=== PATIENT | female | born 1955 | race Caucasian/White ===

== ENCOUNTER 2018-07-20 09:12 | Observation (INO) | payer OTHER ==
[~2018-07-20] VITALS: Ht 152.4 cm; Wt 95.0 kg
[2018-07-20] MEDS ORDERED: METO25TA35 PO (09:36)
[2018-07-20] MEDS ORDERED: CLOP75TA PO (09:36)
[2018-07-20] MEDS ORDERED: METF500T27 PO (09:36)
[2018-07-20] MEDS ORDERED: METF500T17 PO (09:36)
[2018-07-20] MEDS ORDERED: PANT20TA3 PO (09:36)
[2018-07-20] MEDS ORDERED: LOSA25TA25 PO (09:36)
[2018-07-20] MEDS ORDERED: ASPI-496 PO (09:36)
[2018-07-20] MEDS ORDERED: VENL25TA PO (09:36)
[2018-07-20] MEDS ORDERED: nitroglycerin PO (09:36)
[2018-07-20] MEDS ORDERED: RANI150T4 PO (09:36)
[2018-07-20] MEDS ORDERED: [UNRECOGNIZED DRUG - OTHER] PO (09:36)
[2018-07-20] MEDS ORDERED: FURO-93 PO (09:36)
--- NOTE | 2018-07-20 09:36 | NUR ---
Pt presents to ED from home by EMS with c/o left chest pain and left arm pain. Pt states, "I woke up to my arm and felt a horrible chest pain and pain in my left arm, I have not had the pain in my arm before. My nitro tablets were wet some how in the bottle. I knew I needed to call an ambulance. My head still really hurts, it is about a 6 or 7 now, my chest pain after all the stuff I got in the ambulance is about a 5. This morning it was an 11." EDMD at bedside. All safety measures in place. Pt connected to all monitors. Pt has had an ID with 8 stent placement. Pt states, "I have had diarrhea the past three days." Pt states, "This does not feel like anything I have had before."
[2018-07-20] MEDS ORDERED: ACETAMINOPHEN 500 MG TABLET ONE (09:43)
[2018-07-20] MEDS ORDERED: NITROGLYCERIN OINT 2%, 1GM TP ONE ×2 (09:43→10:00)
--- NOTE | 2018-07-20 09:49 | NUR ---
Provided medication per [facility]. Pt appreciative. Pt states, "I don't think the tylenol is going to help my headache, they ususally give me morphine, but I will try the tylenol."
[2018-07-20] MEDS ORDERED: ACETAMINOPHEN 500 MG TABLET PO ONE (10:00)
[2018-07-20] MEDS ORDERED: SODIUM CHLORIDE FLUSH 10ML SYR IVF ONE (10:00)
[2018-07-20 10:13] LABS: BASOPHILS # (AUTO) 0.06 x10^3/uL (0-0.1); BASOPHILS % (AUTO) 1 % (0-1); EOSINOPHILS # (AUTO) 0.14 x10^3/uL (0-0.4); EOSINOPHILS % (AUTO) 2 % (1-7); LYMPHOCYTES # (AUTO) 2.05 x10^3/uL (1-3.4); LYMPHOCYTES % (AUTO) 30 % (22-44); MD NO; MEAN CORPUSCULAR HGB CONC 33.4 g/dL (32.4-35.8); MEAN PLATELET VOLUME 8.8 fL (7.4-10.4); MONOCYTES # (AUTO) 0.45 x10^3/uL (0.2-0.8); MONOCYTES % (AUTO) 7 % (2-9); NEUTROPHILS # (AUTO) 4.05 x10^3/uL (1.8-6.8); NEUTROPHILS % (AUTO) 60 % (42-75); PLATELET COUNT 305 x10^3/uL (130-400); RED BLOOD COUNT 4.48 x10^6/uL (3.82-5.3); RED CELL DISTRIBUTION WIDTH 15.6 % (9.6-15.2)
--- NOTE | 2018-07-20 10:20 | NUR ---
Pt states 8/10 chest pain post medication admin. Repeat EKG done and provided to EDMD. Per EDMD, "no ischemic changes, she can have some sublingual nitro."
[2018-07-20 10:25] LABS: ALBUMIN 3.5 g/dL (3.4-5.0); ANION GAP 7 mmol/L (5-15); CALCIUM 8.7 mg/dL (8.5-10.1); CHLORIDE 108 mmol/L (98-107); CREATININE 0.79 mg/dL (0.55-1.02)
[2018-07-20] MEDS ORDERED: NITROGLYCERIN SINGLE TAB 0.4 MG SL ONE ×2 (10:25→14:35)
[2018-07-20 10:29] LABS: TROPONIN I < 0.015 ng/mL (0.000-0.045)
[2018-07-20] MEDS: NITROGLYCERIN 0.4 MG BOTTLE (25 TABS) SL PRN ×3 (10:29→14:43)
--- NOTE | 2018-07-20 10:29 | NUR ---
Provided medications per [facility].
--- NOTE | 2018-07-20 10:31 | NUR ---
Pt states post medication administration, "My left chest pain is about a 4 now."
--- NOTE | 2018-07-20 11:35 | NUR ---
Pt resting on gurney connected to all monitors. ALONZO. Pt remains on 2L oxygen via nasal cannula. Pt states, "The tylenol didn't help my headache. My chest pain is still a 4." All safety measures in place. Call light within reach. Pt provided warm blankets and Brant Hugger warmer for comfort measures. Pt requesting socks. Will provide socks for patient. No other needs requested at this time.
[2018-07-20] MEDS ORDERED: ACETAMINOPHEN 325 MG TABLET PO PRN (12:00)
[2018-07-20] MEDS ORDERED: BISACODYL 10 MG SUPP PR PRN (12:00)
[2018-07-20] MEDS ORDERED: NITROGLYCERIN 0.4 MG BOTTLE (25 TABS) SL PRN (12:00)
[2018-07-20] MEDS ORDERED: DOCUSATE 100 MG CAPSULE PO PRN (12:00)
[2018-07-20] MEDS ORDERED: LABETALOL 5MG/ML, 20ML IVPush PRN (12:00)
[2018-07-20] MEDS ORDERED: ONDANSETRON 2MG/ML, 2ML IVPush PRN (12:00)
[2018-07-20] MEDS ORDERED: POLYETHYLENE GLYCOL 17 GM PACKET PO PRN (12:00)
[2018-07-20] MEDS ORDERED: MORPHINE SULFATE 4 MG/ML, 1ML ONE ×2 (13:09→14:50)
[2018-07-20] MEDS ORDERED: ENOXAPARIN 40 MG/0.4 ML ONE (13:09)
[2018-07-20] MEDS: morphine SULFATE 10 MG/ML, 1ML IVPush PRN ×3 (13:13→20:41)
[2018-07-20] MEDS: ENOXAPARIN 40 MG/0.4 ML SQ SCH (13:13)
--- NOTE | 2018-07-20 13:18 | NUR ---
Provided pain medication prn per EMAR for 7-10/10 pain. Pt recieved Tylenol prior for headache pain with no relief. Pt states headache is 7/10.
--- NOTE | 2018-07-20 13:21 | NUR ---
Ordered meal tray for pt per request and following MD orders.
--- NOTE | 2018-07-20 14:37 | NUR ---
Pt stating 10/10 left chest pain. EKG done and shown to EDMD. Provided pt medication per EMAR.
--- NOTE | 2018-07-20 14:45 | NUR ---
Pt reports left chest pain has gone down after first nitro per EMAR from a 10/10 to a 5/10.
--- NOTE | 2018-07-20 14:45 | NUR ---
Pt reports left chest pain at a 2/10 at this time post second dose of nitro per EMAR.
--- NOTE | 2018-07-20 14:46 | NUR ---
Pt reporting 7/10 headache.
[2018-07-20] MEDS ORDERED: ACETAMINOPHEN 325 MG TABLET ONE (14:58)
--- NOTE | 2018-07-20 15:05 | NUR ---
Provided report to ANDREA Redmond. All questions answered. Pt ready to transfer to floor from ED.
[2018-07-20] MEDS ORDERED: VENL150C6 PO (15:10)
[2018-07-20] MEDS ORDERED: PREG25CA PO (15:10)
--- NOTE | 2018-07-20 15:10 | NUR ---
Provided pt medication per EMAR for 12/15 headache. Pt appreciative.
[2018-07-20 15:30] LABS: TROPONIN I 0.045 ng/mL (0.000-0.045)
[2018-07-20 15:57] VITALS: BP 139/86
--- NOTE | 2018-07-20 16:08 | NUR ---
Pt transfered to floor from ED and left with all personal belongings.
[2018-07-20] MEDS: FUROSEMIDE 20 MG TABLET PO SCH (17:36)
[2018-07-20 19:39] VITALS: BP 121/79
[2018-07-20] MEDS: SODIUM CHLORIDE FLUSH 10ML SYR IVF SCH (20:40)
[2018-07-20] MEDS: METOPROLOL TARTRATE 25 MG TABLET PO SCH (20:41)
[2018-07-20] MEDS: metFORMIN 500 MG TABLET PO SCH (20:41)
[2018-07-20] MEDS ORDERED: ATOR-2 PO (20:48)
[2018-07-20] MEDS ORDERED: TRAZ-96 PO (20:48)
[2018-07-20 21:38] LABS: TROPONIN I 0.016 ng/mL (0.000-0.045)
[2018-07-20] MEDS ORDERED: TRAZODONE 100MG TABLET PO ONE (23:30)
[2018-07-21 03:40] VITALS: BP 126/85
[2018-07-21] MEDS: ASPIRIN 325 MG TABLET EC PO SCH (05:49)
[2018-07-21 06:34] LABS: CHOL/HDL RATIO 6.6; LDL/HDL RATIO 3.8 (0.5-3.0)
[2018-07-21 06:39] LABS: ALBUMIN 3.2 g/dL (3.4-5.0); ANION GAP 8 mmol/L (5-15); CALCIUM 8.2 mg/dL (8.5-10.1); CHLORIDE 109 mmol/L (98-107); CREATININE 0.75 mg/dL (0.55-1.02)
[2018-07-21 06:42] VITALS: BP 108/70
[2018-07-21] MEDS: SODIUM CHLORIDE FLUSH 10ML SYR IVF SCH ×2 (09:00→22:25)
[2018-07-21 09:45] LABS: TROPONIN I < 0.015 ng/mL (0.000-0.045)
[2018-07-21] MEDS ORDERED: REGADENOSON 0.4 MG/5 ML SYRINGE ONE ×2 (12:09→12:40)
[2018-07-21 13:28] VITALS: BP 121/82
[2018-07-21] MEDS: LOSARTAN 25MG TABLET PO SCH (13:50)
[2018-07-21] MEDS: VENLAFAXINE 25MG TABLET PO SCH (13:50)
[2018-07-21] MEDS: CLOPIDOGREL 75 MG TABLET PO SCH (13:51)
[2018-07-21] MEDS: METOPROLOL TARTRATE 25 MG TABLET PO SCH ×2 (13:51→22:24)
[2018-07-21] MEDS: metFORMIN 500 MG TABLET PO SCH ×2 (13:58→22:24)
[2018-07-21] MEDS: FUROSEMIDE 20 MG TABLET PO SCH ×2 (13:58→17:42)
[2018-07-21] MEDS: ENOXAPARIN 40 MG/0.4 ML SQ SCH (14:00)
[2018-07-21 15:32] LABS: CLOSTRIDIUM DIFFICILE ANTIGEN NEGATIVE; CLOSTRIDIUM DIFFICILE TOXIN NEGATIVE (Negative)
[2018-07-21 18:46] VITALS: BP 126/87
[2018-07-21] MEDS ORDERED: TRAZODONE 100MG TABLET PO SCH (21:00)
[2018-07-21] MEDS ORDERED: TRAZODONE 150MG TABLET PO SCH (21:00)
[2018-07-21] MEDS ORDERED: OMNIPAQUE 350 MG/ML, 100ML BOTTLE ONE (23:14)
[2018-07-22 02:01] VITALS: BP 113/76
[2018-07-22 03:02] VITALS: BP 120/77
[2018-07-22 03:03] VITALS: BP 137/70
[2018-07-22 03:04] VITALS: BP 138/73
[2018-07-22] MEDS: ASPIRIN 325 MG TABLET EC PO SCH (05:21)
[2018-07-22 05:35] LABS: BASOPHILS # (AUTO) 0.06 x10^3/uL (0-0.1); BASOPHILS % (AUTO) 1 % (0-1); EOSINOPHILS # (AUTO) 0.16 x10^3/uL (0-0.4); EOSINOPHILS % (AUTO) 2 % (1-7); LYMPHOCYTES # (AUTO) 2.71 x10^3/uL (1-3.4); LYMPHOCYTES % (AUTO) 35 % (22-44); MD NO; MEAN CORPUSCULAR HEMOGLOBIN 30.7 pg (27.0-34.8); MEAN CORPUSCULAR HGB CONC 33.1 g/dL (32.4-35.8); MEAN CORPUSCULAR VOLUME 92.7 fL (80-100); MEAN PLATELET VOLUME 8.8 fL (7.4-10.4); MONOCYTES # (AUTO) 0.65 x10^3/uL (0.2-0.8); MONOCYTES % (AUTO) 8 % (2-9); NEUTROPHILS # (AUTO) 4.27 x10^3/uL (1.8-6.8); NEUTROPHILS % (AUTO) 55 % (42-75); PLATELET COUNT 317 x10^3/uL (130-400); RED BLOOD COUNT 4.41 x10^6/uL (3.82-5.3); RED CELL DISTRIBUTION WIDTH 15.8 % (9.6-15.2)
[2018-07-22 06:01] LABS: ALANINE AMINOTRANSFERASE 43 U/L (12-78); ALBUMIN 3.3 g/dL (3.4-5.0); ANION GAP 9 mmol/L (5-15); CHLORIDE 104 mmol/L (98-107); CREATININE 0.97 mg/dL (0.55-1.02)
[2018-07-22 06:03] LABS: ALKALINE PHOSPHATASE 109 U/L (45-117); BILIRUBIN,TOTAL 0.3 mg/dL (0.2-1.0); TOTAL PROTEIN 7.5 g/dL (6.4-8.2)
[2018-07-22 07:58] VITALS: BP 111/73
[2018-07-22] MEDS: CLOPIDOGREL 75 MG TABLET PO SCH (08:31)
[2018-07-22] MEDS: VENLAFAXINE 25MG TABLET PO SCH (08:31)
[2018-07-22] MEDS: SODIUM CHLORIDE FLUSH 10ML SYR IVF SCH (08:31)
[2018-07-22] MEDS: FUROSEMIDE 20 MG TABLET PO SCH (08:31)
[2018-07-22] MEDS: LOSARTAN 25MG TABLET PO SCH (08:31)
[2018-07-22] MEDS: METOPROLOL TARTRATE 25 MG TABLET PO SCH (08:31)
[2018-07-22] MEDS: metFORMIN 500 MG TABLET PO SCH (08:32)
[2018-07-22] MEDS: ENOXAPARIN 40 MG/0.4 ML SQ SCH (12:35)
[2018-07-22] MEDS ORDERED: ALBU18HF INH (14:46)
[2018-07-22 15:05] VITALS: BP 138/96
[2018-07-22] MEDS ORDERED: NITR0.4T SL (15:12)
== END 2018-07-22 15:24 | disposition home or self-care (01) ==
LOC: ED 09:45 → INTOOBSV 11:18 → EDIP 11:18 → 5SO 15:29
PROVIDERS: ADMIT Hospitalist; ATTEND Hospitalist
DX: R07.89 Other chest pain (principal); E11.65 Type 2 diabetes mellitus with hyperglycemia; E78.5 Hyperlipidemia, unspecified; I11.9 Hypertensive heart disease without heart failure; I25.110 Atherosclerotic heart disease of native coronary artery with unstable angina pectoris; J96.91 Respiratory failure, unspecified with hypoxia; K21.9 Gastro-esophageal reflux disease without esophagitis; J44.9 Chronic obstructive pulmonary disease, unspecified; Z79.84 Long term (current) use of oral hypoglycemic drugs; Z82.49 Family history of ischemic heart disease and other diseases of the circulatory system; Z87.891 Personal history of nicotine dependence; Z95.5 Presence of coronary angioplasty implant and graft
CPT/HCPCS: 36415; 71045; 71275; 78452; 80048; 80053; 80061; 82040; 84484; 85025; 85379; 87324; 93005; 93017; 96372; 96374; 96376; 97161; 99284; A9502; C9898; G0378; J1650; J2270; J2785; Q9967